=== PATIENT | female | born 1955 | race Caucasian/White ===

== ENCOUNTER → 2025-01-11 | Outpatient (CLI) | payer OTHER, SELFPAY ==
--- NOTE | 2025-01-11 10:21 | BI_ITS ---
EXAM: SCREEN MAMM (CAD) W/FELICIA UNI R DATE: 01/11/2025 CLINICAL HISTORY: F, Age 69 y/o , SCREENING Personal history of breast cancer. Prior left mastectomy. BREAST CANCER RISK ASSESSMENT: Not assessed. TECHNIQUE: Unilateral screening digital breast tomosynthesis with 2D and 3D images. Computer aided detection. COMPARISON: Prior exam(s) dated January 27, 2022.. FINDINGS: TISSUE DENSITY: The breast tissue is almost entirely fatty. Unilateral breast Mammographic Findings: No significant masses, calcifications or other abnormalities are identified. No suspicious masses, areas of developing architectural distortion, or suspicious calcifications. There has been no significant interval change. BI/SCREEN MAMM (CAD) W/FELICIA UNI R IMPRESSION: Right Breast: BIRADS 1 NEGATIVE. OVERALL FINAL ASSESSMENT: BIRADS 1 NEGATIVE RECOMMENDATION: Routine annual follow-up in 1 Year A letter with findings and recommendations will be mailed to the patient. Reading Location: [place] [id number]
== END | disposition home or self-care (01) ==
LOC: OPBI 10:19
PROVIDERS: PCP Family Medicine; Referring Provider Family Medicine; Visit Provider Family Medicine
DX: Z12.31 Encounter for screening mammogram for malignant neoplasm of breast (principal); Z85.3 Personal history of malignant neoplasm of breast
CPT/HCPCS: 77063; 77067